=== PATIENT | male | born 1950 | race Caucasian/White ===

== ENCOUNTER → 2016-09-20 | Outpatient (CLI) | payer BC ==
[~2016-09-20] MED LIST: CALCIUM PO; DARVOCET N 1001 TAB PO; FLEXERIL5 MG PO; LIPITOR10 MG PO; PREDNICOT20 MG PO; TRAMADOL HCL50 MG PO; VICODIN 5/500 505 MG PO
[2016-09-20 10:51] LABS: HEMATOCRIT 44.3 % (42.0-52.0); HEMOGLOBIN 14.7 g/dl (14.0-18.0); MEAN CELL VOLUME 96.3 fl (80.0-94.0); MEAN CORPUSCULAR HGB CONC 33.2 g/dl (33.0-37.0); MEAN PLATELET VOLUME 9.8 fl (9.6-12.3); RED BLOOD COUNT 4.6 10*6/uL (4.50-5.90); WHITE BLOOD COUNT 7.7 10*3/uL (4.8-10.8)
[2016-09-20 11:25] LABS: ALBUMIN 3.6 gm/dl (3.1-4.5); ALKALINE PHOSPHATASE 97 U/L (45-117); BILIRUBIN, TOTAL 0.4 mg/dl (0.2-1.0); BUN 18 mg/dl (7-24); CARBON DIOXIDE 26 mmol/L (21-32); CHLORIDE 104 mmol/L (98-107); CHOLESTEROL 175 mg/dL (<200); CPK 61 U/L (39-308); EST GLOM FILT AFRICAN AMERICAN > 60 ml/min; GLUCOSE 125 mg/dL (65-99); HDL CHOLESTEROL 40 mg/dl (40-60); LDL CHOLESTEROL 106 mg/dL (9-159); POTASSIUM 4.8 mmol/L (3.5-5.1); SGOT/AST 18 IU/L (3-35); SGPT/ALT 30 U/L (12-78); SODIUM 139 mmol/L (136-145); TRIGLYCERIDES 146 mg/dl (<150); VLDL CHOLESTEROL 29 mg/dL (6-40)
== END | disposition home or self-care (01) ==
LOC: LAB 10:30
PROVIDERS: Family Medicine
DX: Z12.5 Encounter for screening for malignant neoplasm of prostate (principal); I10 Essential (primary) hypertension; J44.9 Chronic obstructive pulmonary disease, unspecified; E55.9 Vitamin D deficiency, unspecified; E78.00 Pure hypercholesterolemia, unspecified

== ENCOUNTER → 2017-05-06 | Outpatient (CLI) | payer BC ==
[2017-05-06 12:08] LABS: BUN 17 mg/dl (7-24); CHLORIDE 104 mmol/L (98-107); CHOLESTEROL 148 mg/dL (<200); CPK 138 U/L (39-308); CREATININE 1.11 mg/dL (0.70-1.30); HDL CHOLESTEROL 46 mg/dl (40-60); LDL CHOLESTEROL 80 mg/dL (9-159); POTASSIUM 3.9 mmol/L (3.5-5.1); SODIUM 138 mmol/L (136-145); TRIGLYCERIDES 111 mg/dl (<150); VLDL CHOLESTEROL 22 mg/dL (6-40)
== END | disposition home or self-care (01) ==
LOC: LAB 11:25
PROVIDERS: Family Medicine
DX: I10 Essential (primary) hypertension (principal); E78.00 Pure hypercholesterolemia, unspecified; N52.9 Male erectile dysfunction, unspecified

== ENCOUNTER 2017-05-13 16:56 | Emergency (ER) | payer BC, MEDICARE ==
[~2017-05-13] VITALS: Ht 180.3 cm; Wt 88.5 kg
[2017-05-13 18:04] LABS: BASO # 0.1 10*3/uL (0.0-0.1); BASO % 0.5 % (0.0-1.0); EOS # 0.2 10*3/uL (0.0-0.4); EOS % 1.8 % (1.0-4.0); HEMATOCRIT 43.9 % (42.0-52.0); HEMOGLOBIN 14.9 g/dl (14.0-18.0); LYMPH # 1.8 10*3/uL (1.3-4.4); MEAN CELL VOLUME 96.1 fl (80.0-94.0); MEAN CORPUSCULAR HGB 32.6 pg (27.0-31.0); MEAN CORPUSCULAR HGB CONC 33.9 g/dl (33.0-37.0); MEAN PLATELET VOLUME 9.5 fl (9.6-12.3); MONO # 0.8 10*3/uL (0.1-1.0); MONO % 8.1 % (3.0-9.0); NEUT % 71.3 % (47.0-73.0); PLATELET COUNT AUTOMATED 206 10*3/uL (130-400); RED BLOOD COUNT 4.57 10*6/uL (4.50-5.90); RED CELL DISTRI WIDTH 13.8 % (0-14.5); WHITE BLOOD COUNT 9.9 10*3/uL (4.8-10.8)
[2017-05-13 18:17] LABS: ALBUMIN 3.6 gm/dl (3.1-4.5); ALKALINE PHOSPHATASE 109 U/L (45-117); BUN 16 mg/dl (7-24); CHLORIDE 104 mmol/L (98-107); CREATININE 1.22 mg/dL (0.70-1.30); POTASSIUM 4.1 mmol/L (3.5-5.1); SGOT/AST 31 IU/L (3-35); SGPT/ALT 49 U/L (12-78); SODIUM 136 mmol/L (136-145); TOTAL PROTEIN 8.1 gm/dL (6.4-8.2); URIC ACID 4.3 mg/dL (3.5-7.2)
[2017-05-13] MEDS ORDERED: CEPHALEXIN500 M1 PO (19:11)
[2017-05-13] MEDS ORDERED: Motrin,Rufen800 MG PO (19:11)
== END 2017-05-13 19:16 | disposition home or self-care (01) ==
LOC: ED 16:56
PROVIDERS: Physician Assistant
DX: M25.521 Pain in right elbow (principal); M79.89 Other specified soft tissue disorders; F17.200 Nicotine dependence, unspecified, uncomplicated

== ENCOUNTER 2018-03-18 11:17 | Emergency (ER) | payer BC, MEDICARE ==
[~2018-03-18] VITALS: Ht 180.3 cm; Wt 83.9 kg
[~2018-03-18 11:17] MED LIST changes: +CEPHALEXIN500 M1 PO; +Motrin,Rufen800 MG PO
[2018-03-18] MEDS ORDERED: ROBAXIN500 M1 PO (14:37)
[2018-03-18] MEDS ORDERED: IBUPROFEN600 MG PO (14:37)
== END 2018-03-18 14:55 | disposition home or self-care (01) ==
LOC: ED 11:17
DX: S16.1XXA Strain of muscle, fascia and tendon at neck level, initial encounter (principal); Z79.899 Other long term (current) drug therapy; X58.XXXA Exposure to other specified factors, initial encounter; Y93.89 Activity, other specified; Y92.89 Other specified places as the place of occurrence of the external cause; Y99.8 Other external cause status

== ENCOUNTER → 2019-08-12 | Day surgery (SDC) | payer BC, MEDICARE ==
[~2019-08-12] VITALS: Ht 180.3 cm; Wt 74.4 kg
[~2019-08-12] MED LIST changes: +AMBIEN10 M1 PO; +CLONAZEPAM1 M1 PO; +ELIQUIS5 M1 PO; +FLUDROCORTISON0.1 MG PO; +IBUPROFEN600 MG PO; +KEYTRUDA100 MG/4 M IV; +MIDODRINE HCL5 M1 PO; +PROTONIX TR40 MG PO; +REMERON SOLTAB15 MG PO; +ROBAXIN500 M1 PO; +SYMB160 INH
[2019-08-12 10:41] VITALS: BP 186/88
[2019-08-12 11:33] VITALS: BP 172/91
[2019-08-12 11:48] VITALS: BP 171/87
[2019-08-12 12:01] VITALS: BP 163/93
== END | disposition home or self-care (01) ==
LOC: SDC 08-07 08:45
DX: H25.812 Combined forms of age-related cataract, left eye (principal); K21.9 Gastro-esophageal reflux disease without esophagitis; F41.9 Anxiety disorder, unspecified; J44.9 Chronic obstructive pulmonary disease, unspecified; F32.9 Major depressive disorder, single episode, unspecified; Z98.890 Other specified postprocedural states; Z87.891 Personal history of nicotine dependence; Z79.899 Other long term (current) drug therapy

== ENCOUNTER → 2019-09-02 | Day surgery (SDC) | payer BC, MEDICARE ==
[~2019-09-02] VITALS: Ht 180.3 cm; Wt 74.4 kg
[2019-09-02 10:30] VITALS: BP 151/82
[2019-09-02 11:31] VITALS: BP 165/91
[2019-09-02 11:46] VITALS: BP 179/83
[2019-09-02 12:01] VITALS: BP 162/93
== END | disposition home or self-care (01) ==
LOC: SDC 08-28 08:00
DX: H25.811 Combined forms of age-related cataract, right eye (principal); J44.9 Chronic obstructive pulmonary disease, unspecified; K21.9 Gastro-esophageal reflux disease without esophagitis; F41.9 Anxiety disorder, unspecified; Z79.899 Other long term (current) drug therapy; Z85.118 Personal history of other malignant neoplasm of bronchus and lung; Z87.891 Personal history of nicotine dependence